=== PATIENT | female | born 1960 | race Caucasian/White ===

== ENCOUNTER 2021-06-29 07:01 | Day surgery (SDC) | payer OTHER, SELFPAY ==
[~2021-06-29] VITALS: Ht 157.5 cm; Wt 154.2 kg
[2021-06-29] MEDS ORDERED: fentaNYL citrate 0.05 MG/ML VIAL ONE (09:37)
[2021-06-29] MEDS ORDERED: LIDOCAINE 2% 100 MG/5 ML UJET TP ONE ×2 (09:37→10:35)
[2021-06-29] MEDS ORDERED: fentaNYL citrate 0.05 MG/ML VIAL IVP ONE (10:35)
== END 2021-06-29 10:40 | disposition home or self-care (01) ==
LOC: MDS 07:01 → MMU 07:02 → MDS 10:40
PROVIDERS: ATTEND Internal Medicine Gastroenterology
DX: Z12.11 Encounter for screening for malignant neoplasm of colon (principal); D12.3 Benign neoplasm of transverse colon; I10 Essential (primary) hypertension; E11.9 Type 2 diabetes mellitus without complications; Z20.822 Contact with and (suspected) exposure to COVID-19; Z79.84 Long term (current) use of oral hypoglycemic drugs; Z79.899 Other long term (current) drug therapy
CPT/HCPCS: 45385; 82948; J3010; U0003